=== PATIENT | female | born 1950 | race African-American/Black ===

== ENCOUNTER 2017-02-20 23:31 | Inpatient (IN) | payer MEDICARE, OTHER ==
--- NOTE | ~2017-02-20 | HP ---
History And Physical [facility] [address] [place]. [address] NAME: NAUN GONZALEZ : 52 STATUS : ADM IN PAT#: [id number] AGE: 66 ADM/REG DATE : 02/20/17 MR#: [id number] REPORT SERV DATE: 02/21/17 DICTATED BY: NORI WU DATE: 02/21/17 REPORT STATUS : Draft TRANSCRIBED BY: MODL DATE: 02/21/17 DATE OF ADMISSION: 02/20/2017 CHIEF COMPLAINT: A 66-year-old female presenting with shortness of breath and evidence of metabolic acidosis. HISTORY OF PRESENTING ILLNESS: The patient's history was obtained through an interview with the patient and coupled with review of [facility] medical records. The patient was in usual state of health when she was driving to [place] to see her granddaughter's game. As she went from [place] over to [place], she suddenly felt a "lump" in her chest, and she became diaphoretic and ill in appearance. She describes chest discomfort as a "lump," up to a 10/10 severity associated with nausea, vomiting, and shortness of breath. For several days, she has had a nonproductive cough and for about a month, she has had , sometimes at a 10 severity, particularly worsened if she tries to walk on it. She states that when she had chest pain and shortness of breath, it was difficult to swallow. She first went to an outlying emergency department at [place] and had negative cardiac markers, negative chest x-ray, negative EKG, but there was an abnormal ABG with a pH of 7.28 and a bicarb of 17 and evidence of hypoxia. There is also an elevated D-dimer but because the patient had a creatinine of 1.6, a CT angiogram of the chest was not pursued but the patient was given a therapeutic dose of Lovenox and then per patient's request was transferred down to [facility] for further evaluation. REVIEW OF SYSTEMS: Otherwise, a 14-point review of systems was obtained and was negative. PAST MEDICAL HISTORY: 1. Hypertension, seen by Dr. Urbano Arango. 2. Colon polyps, seen by Dr. Mg. 3. Gout. 4. Chronic kidney disease(?) although our measurement of creatinine here a few years ago was just 1.0. 5. No cardiac disease, no lung disease. PAST SURGICAL HISTORY: Right neck abscess. ALLERGIES: IBUPROFEN. History And Physical [address] [place]. [address] NAME: NAUN GONZALEZ : [birth year] STATUS : ADM IN PAT#: [id number] AGE: 66 ADM/REG DATE : 02/20/17 MR#: [id number] REPORT SERV DATE: 02/21/17 DICTATED BY: NORI WU DATE: 02/21/17 REPORT STATUS : Draft TRANSCRIBED BY: MODL DATE: 02/21/17 SOCIAL HISTORY: Quit smoking in 1998. No alcohol use. She is , has one daughter. FAMILY HISTORY: Aunt with cancer, father with diabetes. Mother and father with heart disease. CURRENT MEDICATIONS: Include allopurinol 300 mg p.o. daily, Norvasc/valsartan 5/320 p.o. daily, Coreg 25 mg p.o. b.i.d., Aldactone 25 mg p.o. daily. PHYSICAL EXAMINATION: VITAL SIGNS: Temperature 98.2, pulse 90, blood pressure 95/52, respiratory rate 20, O2 saturation 87% on room air initially evaluated at [place], now patient is 94% on room air here at our hospital. GENERAL: A pleasant, cooperative, female, with no symptoms currently while I am evaluating her. HEENT: Pupils equal, round, and reactive to light. No conjunctival pallor. No scleral icterus. Nares are patent. Oropharynx is clear of obstruction. Moist mucous membranes. NECK: Trachea midline. No thyromegaly. LYMPH: No cervical lymphadenopathy. No supraclavicular lymphadenopathy. RESPIRATORY: Clear to auscultation at bases. No wheezes, no rales, no rhonchi. Normal respiratory effort. CARDIOVASCULAR: Regular rate and rhythm. No murmurs, rubs, or gallops. No extremity edema is appreciated. ABDOMEN: Soft, nontender, nondistended. Normal bowel sounds auscultated throughout. No hepatosplenomegaly is appreciated. DERMATOLOGICAL: Warm and dry. EXTREMITIES: No pallor, no cyanosis. PSYCHIATRIC: Normal affect. Good mood. Alert and oriented x3. LABORATORY DATA: White blood cell count 3.5, hemoglobin 12, hematocrit 36, platelets 240. Sodium 145, potassium 3.7, chloride 112, bicarb 22, BUN 34, creatinine 1.6, glucose 122. Troponin negative. Brain natriuretic peptide 8. ABG demonstrates a pH of 7.28, a PaCO2 of 37, a PaO2 of 45, and a bicarb of 17 on room air. STUDIES: 1. EKG by my own evaluation shows sinus rhythm. No major abnormalities. 2. A reported chest x-ray at [facility] was negative. ASSESSMENT AND PLAN: 1. Hypoxic respiratory failure with initial saturation of 87% on room air after exertion, now it seems to have stabilized. There was an elevated D-dimer. We will check a stat V/Q scan to begin evaluation. The patient was given a therapeutic dose of Lovenox at approximately 9 p.m. on February 20. 2. Metabolic acidosis. Check lactic acid. Question whether this is from renal disease(?). Check urinalysis, obtain a Nephrology consult. Place on oral bicarb. 3. Chest pain. Negative EKG, follow troponin. Check a stat V/Q scan. Consider stress test if V/Q scan is not diagnostic(?). Check an echocardiogram. Patient given therapeutic Lovenox at [facility] emergency department. History And Physical [address] [address] NAME: NAUN GONZALEZ : [birth year] STATUS : ADM IN [facility]#: [id number] AGE: 66 ADM/REG DATE : 02/20/17 MR#: [id number] REPORT SERV DATE: 02/21/17 DICTATED BY: ONRI WU DATE: 02/21/17 REPORT STATUS : Draft TRANSCRIBED BY: MODMartir DATE: 02/21/17 FAUSTINO/CHRISTA Nori Wu M.D. / [id number] CC: Delma Quintero
--- NOTE | ~2017-02-20 | CN ---
Consultation Report [facility] [address] [place]. [address] NAME: NAUN GONZALEZ : 52 STATUS : ADM IN PAT#: [id number] AGE: 66 ADM/REG DATE : 02/20/17 MR#: [id number] REPORT SERV DATE: 02/22/17 DICTATED BY: LUPILLO FONTANA DATE: 02/21/17 REPORT STATUS : Draft TRANSCRIBED BY: MODL DATE: 02/21/17 DATE OF CONSULTATION: REASON FOR CONSULTATION: Metabolic acidosis and acute kidney injury. HISTORY OF PRESENT ILLNESS: This is a very pleasant 66-year-old female patient, followed in the outpatient setting by Dr. Urbano Sanchez for chronic hypertension control and some level of chronic kidney disease. The patient reports that she is known to have chronic kidney disease stage 3, but does not recall her specific creatinine or GFR. She has followed with Dr. Sanchez for some time by her report and has been advised in past follow-ups that she is known to have chronic kidney disease. As per his recommendation, she does avoid chronic use of nonsteroidal medications and avoids contrast medium unless otherwise clinically warranted. She presents to [facility] overnight for complaint of a rapid onset of nausea and vomiting with shortness of breath and near-syncopal episode while heading toward [place] with family members to visit her grandchild. The patient reports that she became nauseous while in the car, nearly passed out, and did have emesis at least on one occasion. She has maintained chronically in the outpatient setting on allopurinol and amlodipine/valsartan as well as carvedilol and spironolactone, which have been appropriately modified on entry here. Her creatinine in the outlying facility that she was evaluated en route to [place] appears to have been at 1.6 on 02/20/2017 with a white blood cell count on that date at 3.5. Her white blood cell count today is elevated at 24.3. She is afebrile and her creatinine is 2.27. The patient also reports that in recent weeks that she has had an upper respiratory infection and received doxycycline from her primary care provider who is aware of her chronic renal condition. The patient states that she did have what may be supposed is a rash to her upper extremities, but she does have chronic skin condition that may of also worsened and she is unclear if this was a rash as this was primarily isolated to her upper extremities. She is awake and alert this afternoon. She denies current chest pain. No nausea, vomiting, or diarrhea. PAST MEDICAL HISTORY: Positive for chronic kidney disease, followed by Dr. Urbano Sanchez, with unclear baseline and number. However, she is noted to be chronic kidney disease, stage 3. She is also known to have hypertension, followed by Dr. Sanchez as well. Obesity. Denies diabetes, chronic or acute cardiac conditions, chronic or acute pulmonary conditions. SOCIAL HISTORY: No ETOH. No illicit drugs. No tobacco. She does have a history of previous tobacco use. FAMILY HISTORY: Negative for chronic or end-stage renal disease. The patient states that her father and mother both and secondary to complications related to hypertension. CURRENT HOME MEDICATIONS AND ALLERGIES: It does not appear that she list any active allergies. She has been instructed to avoid nonsteroidal medications due to chronic renal disease. Consultation Report [address] [place]. [address] NAME: NAUN GONZALEZ : 52 STATUS : ADM [facility]#: [id number] AGE: 66 ADM/REG DATE : 02/20/17 MR#: [id number] REPORT SERV DATE: 02/22/17 DICTATED BY: LUPILLO FONTANA DATE: 02/21/17 REPORT STATUS : Draft TRANSCRIBED BY: CHRISTA DATE: 02/21/17 Active medications include allopurinol 300 mg daily, amlodipine/valsartan 5/320 one tablet p.o. daily, Coreg 25 mg daily, Aldactone 25 mg daily. PHYSICAL EXAMINATION: VITAL SIGNS: Blood pressure at 110/57, temperature 98.1, respiratory rate 18, heart rate 93 beats per minute and regular, 93% on 2 L. GENERAL: She is an obese appearing female patient, lying awake and alert in bed during evaluation. HEENT: Normocephalic and atraumatic. Normal ocular movements. No scleral icterus. No conjunctival pallor is appreciated. NECK: Supple without thyromegaly. No JVD or mass. CHEST: Positive S1 and S2. No rubs or gallops. LUNGS: Diminished. Normal expansion and effort bilaterally. No rhonchi or wheezes on auscultation. ABDOMEN: Obese and rounded, but non-firm, nondistended, and nontender. : Deferred. EXTREMITIES: Positive pulses to all four extremities. No noted clubbing or cyanosis. She does have a minimal amount of lower extremity edema present to visual examination. NEUROLOGIC: She appears to be grossly intact. Nonfocal. SKIN: Warm, dry, and intact to visualized surfaces. No rash, lesions, or ecchymosis is present. PSYCH: She appears to be appropriate with mood and affect. PERTINENT LABORATORIES AND IMAGING: To this evaluation are as follows. V/Q scan is negative for acute findings for PE. Portable chest x-ray shows no acute cardiopulmonary abnormality, but clear lungs. B-natriuretic peptide 3.5. Lactate 3.0. Urinalysis identifies shahzad urine, cloudy in appearance, 30 mg/dL protein, negative for glucose or ketones, and negative for bilirubin, WBC are minimal, and there is a rare amount of mucus. Most recent CBC shows a white blood cell count 24.2, RBC 3.75, hemoglobin 11.0, hematocrit 34.2, platelets at 163. Comprehensive metabolic panel, procalcitonin is pending. Sodium 145, potassium 4.3, chloride 115, CO2 17, BUN 46, creatinine 2.27. Reflected GFR 25 mL/minute. Glucose of 109. Calcium 8.3. Magnesium 1.7. Phosphorus 2.7. Albumin 2.4. Globulin 3.5. Total bilirubin at 0.3. Alkaline phos 76. ALT and AST at 18 and 21. Troponin less than 0.02. TSH 1.24. IMPRESSION AND PLAN: This is a very pleasant 66-year-old female patient, followed in the outpatient setting by Dr. Urbano Sanchez for chronic kidney disease. Baseline appears to be around 1.6 as in fact evaluation on 02/20 at [facility], her creatinine was 1.6, her white blood cell count was 3.5, creatinine is now at 2.27. She was transitioned to [facility] from [facility] for question of chest pain/shortness of breath/possible PE/near syncope episode. V/Q scan has been negative. Her chest x-ray is clear. She does have an acute kidney injury at this point based of current laboratory readings over the last 48 hours. Her Aldactone and her ARB have been appropriately removed, and considering her depressed CO2, would provide quarter normal saline with 2 amps of bicarb at gentle rate and continue on her p.o. bicarbonate as in place. Her acidosis is likely secondary to her chronic renal disease, may be exacerbated by Consultation Report [place] [address] [place]. [address] NAME: NAUN GONZALEZ : 52 STATUS : ADM IN PAT#: [id number] AGE: 66 ADM/REG DATE : 02/20/17 MR#: [id number] REPORT SERV DATE: 02/22/17 DICTATED BY: LUPILLO FONTANA DATE: 02/21/17 REPORT STATUS : Draft TRANSCRIBED BY: CHRISTA DATE: 02/21/17 current volume contraction that she was on diuretic therapy and did have some level of emesis associated with this current illness. With her elevated white count, we will collect blood cultures x2, UA, C and S, defer antibiotics to primary team. Check postvoid residual. Check urine studies. The patient reports that she has not in previous clinical settings had a renal ultrasound and with history of cujkfmmbw-sm-nrrxuoo hypertension. We will undergo renal ultrasound with Doppler evaluation. Gather records from Dr. Sanchez's office to further shed light on the patient's chronic medical status. Follow serial laboratories, strict I's and Os. Further modify treatment plan based on clinical presentation, the patient laboratory results, further consultation with renal attending. We appreciate consultation. We are glad to follow this patient with you. DICTATED BY: Joshua Messina NP JR/CHRISTA Lupillo Fontana M.D. / [id number] CC: Delma Quintero MICHALLE B
--- NOTE | ~2017-02-20 | DS ---
Discharge Summary [place] [address] [facility] [place]. [address] NAME: NAUN GONZALEZ : 52 STATUS : DIS IN PAT#: [id number] AGE: 66 ADM/REG DATE : 02/20/17 MR#: [id number] REPORT SERV DATE: 02/27/17 DICTATED BY: SUNIL BENAVIDES DATE: 02/24/17 REPORT STATUS : Draft TRANSCRIBED BY: MODL DATE: 02/24/17 ADMISSION DATE: 02/20/2017 DISCHARGE DATE: 02/24/2017 DISCHARGE DIAGNOSES: 1. Hypoxic respiratory failure, present on admission. 2. Metabolic and lactic acidosis. 3. Hypertension. 4. Systemic inflammatory response syndrome of unknown etiology. 5. Obesity with possible sleep apnea with positive overnight pulse oximetry. 6. Acute kidney injury. 7. Systemic hypertension. 8. Gout. 9. Emphysema by CT imaging. CONSULTANTS DURING THIS HOSPITALIZATION: Dr. Lupillo Fontana of Nephrology. INVASIVE PROCEDURES DONE DURING THIS HOSPITALIZATION: None. BRIEF HISTORY OF PRESENT ILLNESS: The patient is a 66-year-old female who is obese, [facility] for hypoxic respiratory failure and increased D-dimer. For a detailed history and physical exam, please see note dictated by Dr. Vamsi Duggan on 02/21/2017. HOSPITAL COURSE: After being admitted to the hospital, this patient actually presented to the outlying facility with room air sat of about 87%, where she underwent a V/Q scan when she arrived at our hospital, it was a low probability V/Q scan for pulmonary embolism. She was noted to have metabolic acidosis. A lactate level was checked and it was 3.0. I checked a procalcitonin level and it was almost 90 and then came down to about 60. We aggressively hydrated her. We held her antihypertensives. Nephrology saw the patient in consultation and agreed with our current plan. A renal ultrasound was done, which showed no evidence of any pyelonephritis. Because there was no etiology of her systemic inflammatory response as chest x-rays were negative as well, we did a CT of the chest, abdomen, and pelvis, which showed no acute pathology to explain systemic inflammatory response or sepsis- like picture. This patient continued to do better. She did have an elevated white count of about 24,000, so we had initiated antibiotics as well. Urine antigen for strep pneumonia was negative. Urine antigen for Legionella was negative. A urine mycoplasma has been pending. Certainly, there is a possibility in this severely hypoxic patient, which now has seemed to be resolved with use of Levaquin as it will cover atypicals. This patient is doing well. Her ambulatory status now greater than 92%. Her kidney function has returned better than baseline to about 1.32 and today's labs are still pending. If labs do not show any significant problems today, then she will be discharged home. DISCHARGE DISPOSITION: Home. DISCHARGE ACTIVITY: As tolerated. Discharge Summary [place] [address] [facility] [place]. [address] NAME: NAUN GONZALEZ : 52 STATUS : DIS IN PAT#: [id number] AGE: 66 ADM/REG DATE : 02/20/17 MR#: [id number] REPORT SERV DATE: 02/27/17 DICTATED BY: SUNIL BENAVIDES DATE: 02/24/17 REPORT STATUS : Draft TRANSCRIBED BY: CHRISTA DATE: 02/24/17 DISCHARGE DIET: Low sodium diet. DISCHARGE MEDICATIONS: Allopurinol 300 mg one tablet daily, amlodipine 5 mg once daily, Coreg 25 mg twice daily, Dulera 200/5 mg two puffs b.i.d., Levaquin 750 mg once daily for five more days. DISCHARGE FOLLOWUP: With Dr. Urbano Arango as scheduled and with Esther Mancera at the [facility] group as scheduled. More than 35 minutes spent planning this patient's discharge, reconciling medications, writing prescriptions, discussing hospital care and followup with the patient, and documenting this discharge. DICTATED BY: Delma Quintero/CHRISTA Sunil Benavides M.D. / [id number] CC: Delma Quintero MICHALLE B Michael Greer, M.D. Michelle Morris, NP
--- NOTE | ~2017-02-20 | PUL ---
[place] [address] [place]. [address] NAME: NAUN GONZALEZ : 52 STATUS : ADM IN PAT#: [id number] AGE: 66 ADM/REG DATE : 02/20/17 MR#: [id number] REPORT SERV DATE: 02/22/17 DICTATED BY: LESLIE JARA IV DATE: 02/22/17 REPORT STATUS : Draft TRANSCRIBED BY: MODL DATE: 02/22/17 PULMONARY FUNCTION TEST OVERNIGHT OXIMETRY Study is performed on room air. Six hours and 23 minutes of data are available for review. The mean oxygen saturation is 91.2%. The lowest recorded saturation is 72%. The patient spent 31 minutes with oxygen saturations less than 88%. There were periods of oxygen saturation variation of sawtooth pattern with the majority of the desaturations occurring during these periods of time. IMPRESSION: Significant nocturnal hypoxemia on room air. There is a pattern consistent with obstructive sleep apnea that would be moderate based on a desaturation index of 23 per hour. Because of the marginal mean oxygen saturation, I would suggest placing the patient on 2 L of supplemental oxygen and obtaining a formal polysomnography. LAURA/CHRISTA Leslie Jara IV, M.D. / [id number] CC: Delma Quintero MICHALLE B
[2017-02-21] MEDS ORDERED: COREG25 PO (00:29)
[2017-02-21] MEDS ORDERED: Z300 PO (00:30)
[2017-02-21] MEDS ORDERED: EXFORGE1 TA1 PO (00:30)
[2017-02-21] MEDS ORDERED: SPIRO25 PO (00:31)
[2017-02-21 00:50] LABS: INSTRUMENT SERIAL # 35151; PCO2 (CO2 TENSION) 34 MMHG (35-45); PO2 (O2 TENSION) 71 MMHG (79-93)
[2017-02-21 00:51] LABS: ALLENS TEST Pos; BE (BASE EXCESS) -9.1 MEQ/L (0 +/- 2.5); HCO3 (ACTUAL BICARBONATE) 16.2 MEQ/L (23-27); HEMOBLOGIN CONTENT 13.4 G/DL (12-16); METHEMOGLOBIN 0.2 % (0-3); O2 CONTENT 17.4 VOL% (18-24); OPERATOR ID 17370; SAMPLE Arterial
[2017-02-21 09:47] LABS: ASCORBIC ACID (UR NOT ORDER) NEG (NEG); BILIRUBIN, URINE NEGATIVE (NEG); KETONE, URINE NEGATIVE (NEG); LEUKOCYTE ESTERASE(NOT OR NEG (NEG); WBC (NOT ORDERED) (RFLEX) 7 (0-5)
[2017-02-21 10:00] LABS: BASOPHILS 0.1 %; BASOPHILS ABSOLUTE 0.02 10/3/uL (0.0-0.16); EOSINOPHILS 1.4 %; EOSINOPHILS ABSOLUTE 0.35 10/3/uL (0.0-0.53); IMMATURE GRANULOCYTES 1.4 %; IMMATURE GRANULOCYTES ABSOLUTE 0.33 10/3/uL (0.0-0.11); LYMPHOCYTES 8.6 %; LYMPHOCYTES ABSOLUTE 2.09 10/3/uL (0.67-4.30); MEAN CORPUS HGB CONC 32.2 g/dL (32.0-36.0); MEAN CORPUSCULAR HEMOGLOB 29.3 pg (26.0-34.0); MEAN CORPUSCULAR VOLUME 91.2 fL (80-100); MEAN PLATELET VOLUME 11.3 fL (9.2-13.0); MONOCYTES 7.6 %; MONOCYTES ABSOLUTE 1.84 10/3/uL (0.21-1.20); NEUTROPHILS 80.9 %; NEUTROPHILS ABSOLUTE 19.61 10/3/uL (2.02-8.40); PLATELET COUNT 163 10/3/uL (150-400); RBC DISTRIBUTION WIDTH 16.1 % (12.0-16.0); RED CELL COUNT 3.75 10/6/uL (4.0-5.6); WHITE BLOOD CELLS 24.2 10/3/uL (4.5-10.5)
[2017-02-21 10:01] LABS: HEMATOCRIT 34.2 % (36.0-48.0); MANUAL DIFF NO %
[2017-02-21 10:07] LABS: INTERNATIONAL NORMAL RATI 1.3 UNITS (-); PARTIAL THROMBO TIME 44.7 SEC (22.5-37.2); PROTIME (NOT ORD) 15.7 SEC (12.0-14.5)
[2017-02-21 11:53] LABS: POTASSIUM, SERUM 4.3 MMOL/L (3.5-5.3); SODIUM, SERUM 145 MMOL/L (135-148)
[2017-02-21 11:54] LABS: SGOT(AST) 21 U/L (5-40)
[2017-02-21 12:17] LABS: A/G RATIO 0.7 (0.7-1.9); ALBUMIN 2.4 G/DL (3.5-5.0); ALKALINE PHOSPHATASE 76 U/L (45-117); BUN (BLOOD UREA NITROGEN) 46 MG/DL (6-23); CALCIUM, SERUM 8.3 MG/DL (8.5-10.4); CHLORIDE, SERUM 115 MMOL/L (96-112); CO2 (CARBON DIOXIDE) 17 MMOL/L (24-34); CREATININE 2.27 MG/DL (0.55-1.02); GFR AFRICAN AMERICAN 25 ML/MIN (>=60); GFR NON AFRICAN AMERICAN 22 ML/MIN (>=60); GLOBULIN 3.5 G/DL (2.5-4.1); GLUCOSE, SERUM 109 MG/DL (60-99); PHOSPHORUS, SERUM 2.7 MG/DL (2.5-4.5); SGPT(ALT) 18 U/L (5-65); TOTAL BILIRUBIN 0.3 MG/DL (0-1.2); TOTAL PROTEIN 5.9 G/DL (6.0-8.5); TROPONIN I <0.02 NG/ML (<0.05)
[2017-02-22 04:54] LABS: ALBUMIN 2.5 G/DL (3.5-5.0); CALCIUM, SERUM 8.2 MG/DL (8.5-10.4); CHLORIDE, SERUM 113 MMOL/L (96-112); PHOSPHORUS, SERUM 2.2 MG/DL (2.5-4.5); POTASSIUM, SERUM 3.8 MMOL/L (3.5-5.3); SODIUM, SERUM 144 MMOL/L (135-148)
[2017-02-22 05:00] LABS: BUN (BLOOD UREA NITROGEN) 38 MG/DL (6-23); CO2 (CARBON DIOXIDE) 23 MMOL/L (24-34); CREATININE 1.69 MG/DL (0.55-1.02); GFR AFRICAN AMERICAN 36 ML/MIN (>=60); GFR NON AFRICAN AMERICAN 31 ML/MIN (>=60); GLUCOSE, SERUM 79 MG/DL (60-99)
[2017-02-22 05:52] LABS: PROCALCITONIN 59.07 ng/mL (<0.5)
[2017-02-23 04:44] LABS: CALCIUM, SERUM 8.4 MG/DL (8.5-10.4); CHLORIDE, SERUM 109 MMOL/L (96-112); CO2 (CARBON DIOXIDE) 27 MMOL/L (24-34); CREATININE 1.32 MG/DL (0.55-1.02); GFR AFRICAN AMERICAN 49 ML/MIN (>=60); GFR NON AFRICAN AMERICAN 42 ML/MIN (>=60); GLUCOSE, SERUM 92 MG/DL (60-99); PHOSPHORUS, SERUM 2.2 MG/DL (2.5-4.5); SODIUM, SERUM 143 MMOL/L (135-148)
[2017-02-23 04:45] LABS: BUN (BLOOD UREA NITROGEN) 26 MG/DL (6-23)
[2017-02-24 08:57] LABS: BASOPHILS 0.2 %; BASOPHILS ABSOLUTE 0.01 10/3/uL (0.0-0.16); EOSINOPHILS 4.9 %; EOSINOPHILS ABSOLUTE 0.31 10/3/uL (0.0-0.53); HEMATOCRIT 31.9 % (36.0-48.0); HEMOGLOBIN 10.2 g/dL (12.0-16.0); IMMATURE GRANULOCYTES 0.3 %; IMMATURE GRANULOCYTES ABSOLUTE 0.02 10/3/uL (0.0-0.11); LYMPHOCYTES 29.2 %; LYMPHOCYTES ABSOLUTE 1.83 10/3/uL (0.67-4.30); MEAN CORPUSCULAR HEMOGLOB 28.7 pg (26.0-34.0); MEAN CORPUSCULAR VOLUME 89.9 fL (80-100); MONOCYTES 9.1 %; MONOCYTES ABSOLUTE 0.57 10/3/uL (0.21-1.20); NEUTROPHILS 56.3 %; NEUTROPHILS ABSOLUTE 3.53 10/3/uL (2.02-8.40); PLATELET COUNT 178 10/3/uL (150-400); RBC DISTRIBUTION WIDTH 15.7 % (12.0-16.0); RED CELL COUNT 3.55 10/6/uL (4.0-5.6); WHITE BLOOD CELLS 6.3 10/3/uL (4.5-10.5)
[2017-02-24 08:58] LABS: MANUAL DIFF NO %
[2017-02-24 09:09] LABS: ALBUMIN 2.9 G/DL (3.5-5.0); BUN (BLOOD UREA NITROGEN) 19 MG/DL (6-23); CALCIUM, SERUM 9.1 MG/DL (8.5-10.4); CHLORIDE, SERUM 104 MMOL/L (96-112); CO2 (CARBON DIOXIDE) 30 MMOL/L (24-34); CREATININE 1.19 MG/DL (0.55-1.02); GFR AFRICAN AMERICAN 55 ML/MIN (>=60); GFR NON AFRICAN AMERICAN 48 ML/MIN (>=60); GLUCOSE, SERUM 100 MG/DL (60-99); PHOSPHORUS, SERUM 2.5 MG/DL (2.5-4.5); SODIUM, SERUM 139 MMOL/L (135-148)
[2017-02-24] MEDS ORDERED: NORV5 PO (09:31)
[2017-02-24] MEDS ORDERED: LEVAQUIN750 MG PO (09:31)
[2017-02-24] MEDS ORDERED: DULERA 200 MCG/13 GM INH (09:32)
[2017-02-24 09:50] LABS: PROCALCITONIN 17.41 ng/mL (<0.5)
== END 2017-02-24 10:48 | disposition home or self-care (01) | DRG 189 ==
LOC: 5NO 23:31
PROVIDERS: Hospitalist; Internal Medicine; Registered Nurse
DX: J96.01 Acute respiratory failure with hypoxia (principal); R65.11 Systemic inflammatory response syndrome (SIRS) of non-infectious origin with acute organ dysfunction; N17.9 Acute kidney failure, unspecified; E87.2 Acidosis; E66.9 Obesity, unspecified; Z68.37 Body mass index [BMI] 37.0-37.9, adult; G47.33 Obstructive sleep apnea (adult) (pediatric); I12.9 Hypertensive chronic kidney disease with stage 1 through stage 4 chronic kidney disease, or unspecified chronic kidney disease; N18.3 Chronic kidney disease, stage 3 (moderate)
CPT/HCPCS: 36600; 71010; 71250; 74176; 78582; 80048; 80053; 80069; 81001; 82805; 83605; 83735; 83880; 84100; 84145; 84443; 84484; 85025; 85610; 85730; 86738; 87040; 87449; 93005; 93306; 93970; 93975; 94640; 94762; A9270-GY; A9540; A9567; J1956; J3475